=== PATIENT | male | born 1975 | race African-American/Black ===

== ENCOUNTER 2023-08-03 11:05 | Emergency (ER) | payer BC, SELFPAY ==
--- NOTE | ~2023-08-03 | XR_ITS ---
EXAMINATION: XR CHEST CLINICAL INFORMATION: Chest pain. Dyspnea. COMPARISON: None available. TECHNIQUE: 2 views of the chest were obtained. FINDINGS: Cardiac silhouette is normal in size. The lungs are well aerated. There is no lobar consolidation. No pleural effusion or pneumothorax. No gross osseous abnormality. Minimal degenerative changes of the spine. XR/XR chest 2V IMPRESSION: No acute pulmonary pathology.
--- NOTE | 2023-08-03 11:09 | ECG_ITS ---
Test Reason : CHEST IGHTNESS Blood Pressure : / mmHG Vent. Rate : 063 BPM Atrial Rate : 063 BPM P-R Int : 150 ms QRS Dur : 076 ms QT Int : 396 ms P-R-T Axes : 050 -11 -15 degrees QTc Int : 405 ms Normal sinus rhythm Nonspecific T wave abnormality Abnormal ECG No previous ECGs available Referred By: Generic ED Physician Electronically Signed By:STEVEN RODRÍGUEZ
[2023-08-03 11:19] VITALS: BP 132/82; PULSE 56; RESP 19; TEMP 36.8; O2SAT 99; BMI 30.6
--- NOTE | 2023-08-03 11:19 | ED.GENADULT ---
HPI - General Adult General Chief complaint: General Medical Stated complaint: Chest tightness, difficulty breathing Time Seen by Provider: 08/03/23 16:34 Source: patient and RN notes reviewed Mode of arrival: ambulatory Limitations: no limitations History of Present Illness HPI narrative: This is a 47-year-old male, with no known medical problems, presenting to the emergency department complaints of intermittent chest palpitations times 2-3 months. Patient states that ever since July 01 he has had intermittent episodes of ?thumping? in his chest. He states that he noticed this increased when he is at work as well as driving in his vehicle. He does report that he is under lot of stress. He states that since night, the symptoms have been constant, they last for typically several seconds up to 5 minutes. He does endorse some mild nausea as well as intermittent dizziness, noticing with standing. He denies chest pain rather palpitations and fluttering in his chest. He denies any headaches, abdominal pain, nausea, vomiting or diarrhea. No other complaints or concerns at this time. MD complaint: Chest palpitations Onset (ago): month(s) Relieving factors: none Exacerbating factors: none Treatments prior to arrival: none Related Data Allergies Allergy/AdvReac Type Severity Reaction Status Date / Time No Known Allergies Allergy Verified 08/03/23 11:22 Review of Systems Review of Systems: Yes all other systems are reviewed and are negative Constitutional: Constitutional: Reports as per [facility] Past Medical History Attestation statement: The following information was validated with the patient. Onset Date is defined in the Problem List Problems that require an onset date and time if occurred within 24 hrs of arrival to the ED Aortic Dissection and Rupture; Neurologic impairment; Cardiopulmonary Arrest; Endotracheal Intubation; Insertion or Replacement of Mechanical Circulatory Assist Device Social History Social History Smoked in Last 30 Days: No Use of substances other than those prescribed or required for medical reasons: Yes Substance Use Type: Marijuana Advance Directives: No Advance Directives Information Provided: No Physical Exam ED Vital Signs: Vital Signs - 24 hr 08/03/23 11:19 08/03/23 17:14 08/03/23 17:15 Temperature 98.3 F Pulse Rate 56 76 75 Respiratory Rate 19 18 16 Blood Pressure 132/82 127/77 135/75 Pulse Oximetry 99 100 Oxygen Delivery Method Room Air Room Air 08/03/23 17:17 Temperature Pulse Rate 73 Respiratory Rate 16 Blood Pressure 138/73 Pulse Oximetry Oxygen Delivery Method BMI result Body Mass Index 30.6 Const General: cooperative, comfortable and no acute distress Orientation/consciousness: patient oriented x3 Limitations: no limitations [facility] Head: Yes normal to inspection, Yes normocephalic and Yes atraumatic Ears: hearing grossly normal bilaterally General nose exam: Normal external nose present Face and sinus: Yes normal facial exam Mouth: Normal oral and palatal mucosa present, oropharynx normal and moist mucous membranes Throat: Yes posterior oropharynx normal Eyes General: appearance normal, both eyes and all related structures Eyelids: Yes eyelids normal Conjunctivae: conjunctivae normal Sclerae: sclerae normal Pupils: Equal, round and reactive pupils present EOM: EOMs intact bilaterally Neck Neck: Yes normal visual inspection, Yes full ROM and Yes no lymphadenopathy Lymphatic: no lymphadenopathy noted Chest Chest palpation & inspection: normal inspection of the chest Resp Effort & Inspection: normal respiratory effort and able to speak in complete sentences Auscultation: clear to auscultation bilaterally, no crackles, no rales, no rhonchi and no wheezes Cardio Rate: regular rate Rhythm: regular rhythm Heart sounds: S1 normal heart sound present and S2 normal heart sound present GI Inspection: Yes normal to inspection Skin General skin exam: no rashes or lesions noted Trauma: no lacerations or abrasions Wounds: no wounds Neuro General: patient oriented x3 and moves all extremities Cranial nerves: Yes Equal, round and reactive pupils present Extrem Other: No calf tenderness. General: Yes normal to inspection Right upper extremity: normal to inspection Left upper extremity: normal to inspection Right lower extremity: normal to inspection Left lower extremity: normal to inspection Course Course Course Narrative: This is a rapid medical exam: Additional HPI, ROS, PE not included below will be deferred to primary provider. Patient is a 47-year-old male presenting to the emergency department with complaint of chest tightness, shortness of breath, worse with standing and movement for the past 2-3 months. Symptoms more constant since night. Reports mild nausea, denies vomiting or diarrhea. Denies any past medical history. Rates pain at 4 or 5/10. Plan: EKG, CXR, labs Reevaluation(s) Reevaluation #1: Patient was seen by me at this time, vital signs have remained stable, chest x-ray unremarkable. No leukocytosis, stable H&H, 1st troponin 8, will repeat. Chemistry within normal limits. Orthostatic vital signs within normal limits Time: 17:18 Reevaluation #2: Second troponin flat, EKG reassuring chest x-ray unremarkable. BNP and TSH limits. Cardiac workup today is unremarkable. Given cardiology referral for further evaluation. Given return precautions. Patient understands agrees with plan. Patient stable for discharge. Time: 18:31 Medical Decision Making Medical Decision Making [facility] Narrative: This is a 47-year-old male, with no known medical problems, presenting to the emergency department complaints of palpitations times 2-3 months. Reports that since he has had increased frequency in these. Endorses slight nausea as well as dizziness upon standing. On arrival, all vital signs within normal limits, heart regular rate and rhythm. Patient has no history of blood clots, pain with inspiration, recent travel, surgeries, hospitalizations, or cancer history. He has no known family medical cardiac problems. Plan: Labs, EKG, chest x-ray, orthostatic vitals Differential Diagnosis Differential Diagnoses: The differential diagnosis associated with the presentation includes Palpitations, electrolyte abnormality, ACS, Admission/Observation Consideration of admission/observation: Escalation of care including admission/observation considered Escalation of care including admission observation was considered given atypical chest pain however workup reassuring. Lab Data [facility] Lab Attestation statement: I reviewed the patient's lab results. See course 08/03/23 11:31 08/03/23 11:31 Labs: Lab Results 08/03/23 08/03/23 08/03/23 Range/Units 11:31 17:51 17:52 WBC 7.4 (4.8-10.8) X10*3/uL RBC 5.18 (4.60-5.80) X10*6/uL Hgb 14.7 (14.0-18.0) g/dl Hct 42.9 (42.0-52.0) % MCV 82.8 (80.0-98.0) fL MCH 28.4 (27.0-33.0) pg MCHC 34.3 (31.0-36.0) g/dl RDW 13.1 (11.0-16.0) % Plt Count 253 (160-400) X10*3/uL MPV 9.7 (9.4-12.4) fL Immature Gran % (Auto) 0.3 (0.0-0.4) % Neut % (Auto) 66.2 (45-73) % Lymph % (Auto) 26.5 (20-40) % [place] % (Auto) 6.1 (2-11) % Eos % (Auto) 0.5 (0-4) % Baso % (Auto) 0.4 (0-2) % Lymph # (Auto) 2.0 (1.2-4.9) X10*3/uL [place] # (Auto) 0.5 (0.1-1.2) X10*3/uL Eos # (Auto) 0.0 (0.0-0.4) X10*3/uL Baso # (Auto) 0.0 (0.0-0.2) X10*3/uL Abs Immat Gran (auto) 0.02 (0.00-0.03) X10*3/uL Absolute Neuts (auto) 4.9 (2.0-8.3) x10*3/uL Absolute Nucleated RBC 0.000 (0.0-0.012) X10*3/uL Nucleated RBC % (auto) 0.0 (0.0-0.2) /100WBC PT 12.6 (11.1-13.3) SEC INR 1.0 (0.9-1.1) Sodium 141 (135-145) mmol/L Potassium 4.2 (3.3-5.1) mmol/L Chloride 105 (96-108) mmol/L Carbon Dioxide 27 (22-29) mmol/L Anion Gap 13 (12-20) BUN 8 L (9-16) mg/dL Creatinine 1.14 (0.5-1.4) mg/dL Estim Creat Clear Calc 86.9 Estimated GFR > 60 Random Glucose 105 (60-115) mg/dL Calcium 10.0 (8.4-10.2) mg/dL Total Bilirubin 0.5 (0.0-1.0) mg/dL AST 14 (5-37) U/L ALT 15 (0-40) U/L Alkaline Phosphatase 51 (39-117) U/L Troponin I High Sens 8.0 7.6 (<3.5-35.0) ng/L B-Natriuretic Peptide < 10 (<100) pg/mL Total Protein 7.6 (6.5-8.0) g/dL Albumin 4.8 (3.5-5.0) g/dL TSH 1.35 (0.32-4.0) uIU/mL Independent Interpretation I performed an independent interpretation of an: EKG Interpretation: EKG normal sinus rhythm at a ventricular rate of 63 beats per minute, no ST elevation or depression noted Radiology Impression Discussion of test interpretation with radiology: I have reviewed the radiologist's reading. Radiologist Impression: EXAMINATION: XR CHEST CLINICAL INFORMATION: Chest pain. Dyspnea. COMPARISON: None available. TECHNIQUE: 2 views of the chest were obtained. FINDINGS: Cardiac silhouette is normal in size. The lungs are well aerated. There is no lobar consolidation. No pleural effusion or pneumothorax. No gross osseous abnormality. Minimal degenerative changes of the spine. XR/XR chest 2V IMPRESSION: No acute pulmonary pathology. Dictated By: Marcos Garcia MD Discharge Plan Discharge Clinical Impression: Atypical chest pain, Palpitation Patient Disposition: Home, Self-Care Instructions: Chest Pain (ED), Heart Palpitations (ED) Additional Instructions: You were seen in the emergency department for palpitations. Your workup today was normal. Your EKG was normal, your chest x-ray was normal. Your thyroid level was within normal limits Your labs were reassuring. It is unclear what is causing you to have the symptoms therefore I urge you to follow-up with cardiology outpatient. Please call to make an appointment. If any new or worsening symptoms occur including but not limited to chest pain, shortness of breath, or any other new or worsening symptoms, please return for re-evaluation. Referrals: [facility] [Provider Group] Stand Alone Forms: Work/School Release
[2023-08-03 11:35] LABS: MANUAL DIFF FLAG NO
[2023-08-03 11:36] LABS: Basophils Percent Auto 0.4 % (0-2); Eosinophils Percent Auto 0.5 % (0-4); Hematocrit 42.9 % (42.0-52.0); Hemoglobin 14.7 g/dl (14.0-18.0); Imm Gran Abs Auto 0.02 X10*3/uL (0.00-0.03); Imm Gran Pct Auto 0.3 % (0.0-0.4); Lymphocytes Percent Auto 26.5 % (20-40); Mean Corpuscular HGB Conc 34.3 g/dl (31.0-36.0); Mean Corpuscular Hemoglobin 28.4 pg (27.0-33.0); Mean Corpuscular Volume 82.8 fL (80.0-98.0); Mean Platelet Volume 9.7 fL (9.4-12.4); Monocytes Absolute Auto 0.5 X10*3/uL (0.1-1.2); Monocytes Percent Auto 6.1 % (2-11); Neutrophils Absolute Auto 4.9 x10*3/uL (2.0-8.3); Neutrophils Percent Auto 66.2 % (45-73); Platelet Count 253 X10*3/uL (160-400); Red Blood Count 5.18 X10*6/uL (4.60-5.80); Red Cell Distribution Width 13.1 % (11.0-16.0); White Blood Count 7.4 X10*3/uL (4.8-10.8)
[2023-08-03 11:47] LABS: Prothrombin Time 12.6 SEC (11.1-13.3)
[2023-08-03 11:51] LABS: Alanine Aminotransferase 15 U/L (0-40); Albumin Level 4.8 g/dL (3.5-5.0); Alkaline Phosphatase 51 U/L (39-117); Anion Gap 13 (12-20); Aspartate Amino Transferase 14 U/L (5-37); Bilirubin Total 0.5 mg/dL (0.0-1.0); Blood Urea Nitrogen 8 mg/dL (9-16); Carbon Dioxide 27 mmol/L (22-29); Chloride 105 mmol/L (96-108); Creatinine Clr Calc Pharmacy 86.9; Estimated Glomerular Filt Rate > 60; Glucose Random 105 mg/dL (60-115); Potassium 4.2 mmol/L (3.3-5.1); Sodium 141 mmol/L (135-145); Total Protein 7.6 g/dL (6.5-8.0)
[2023-08-03 17:14] VITALS: BP 127/77; PULSE 76; RESP 18; O2SAT 100
[2023-08-03 17:15] VITALS: BP 135/75; PULSE 75; RESP 16
[2023-08-03 17:17] VITALS: BP 138/73; PULSE 73; RESP 16
[2023-08-03 18:27] LABS: B Type Natriuretic Peptide < 10 pg/mL (<100); Troponin-I High Sensitivity 7.6 ng/L (<3.5-35.0)
[2023-08-03 18:41] LABS: TSH reflex Free T4 1.35 uIU/mL (0.32-4.0)
== END 2023-08-03 19:22 | disposition home or self-care (01) ==
PROVIDERS: Physician Assistant Medical; Registered Nurse Emergency; Emergency Provider Emergency Medicine Emergency Medical Services; PCP Internal Medicine
DX: R07.89 Other chest pain (principal); R00.2 Palpitations; R06.02 Shortness of breath
CPT/HCPCS: 36415; 71046; 80053; 83880; 84443; 84484; 85025; 85610; 93005; 99283; 99284

== ENCOUNTER → 2023-08-03 11:09 | Outpatient (BNV) | payer SELFPAY | PROVIDERS: PCP Internal Medicine; Visit Provider Internal Medicine | DX: R94.31 Abnormal electrocardiogram [ECG] [EKG] (principal) | CPT/HCPCS: 93010 ==

== ENCOUNTER 2023-08-06 13:38 | Outpatient (AMB) | payer BC, SELFPAY ==
--- NOTE | 2023-08-06 14:06 | MHC.OFFVIS ---
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 He ruled out for ACS. Was referred to Cardiology in follow-up. Today he reports that he is under high levels of stress at home and at work. He believes this is contributing to his symptoms. He describes having an episode back in May where he was at home and had a drink of alcohol. He then felt brief palpitation in his chest, followed by a warm sensation, nausea and it felt like he was going to pass out. He has never had any full syncope in the past. He tells me an episode like this happened several years ago as well. On the day he went to the emergency room he says he was having similar symptoms causing him much concern. He describes having periodic tightness in his chest. His chest will feel better if he puts his bathroom on and ties it tightly around the ribcage area. He used to exercise routinely but has not in the last year as he has a daughter. His work environment is creating much stress and he is tearful at this visit. He says he is pursuing other job opportunities. He says he had a heart murmur as a child. No other history of heart disease. He has no heart disease in his family. He has never smoked cigarettes. He smokes marijuana occasionally. No alcohol use since May. 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 Never had full syncope Denies chest pain, Denies chest pain at rest, Denies chest pain with activity, Denies rapid heart rate, Denies pedal edema, Denies edema, Denies leg edema, Denies lightheadedness, Denies palpitations, Denies dyspnea, Denies dyspnea on exertion and Denies orthopnea Resp Denies cough, Denies dyspnea and Denies dyspnea on exertion GI Denies hematochezia and Denies change in stool character Musc Denies abnormal gait, Reports limited range of motion, Reports muscle cramps, Denies muscle weakness, Denies numbness, Denies radiating pain into limb, Denies stiffness and Denies tingling Neuro Denies abnormal gait, Denies dizziness, Denies numbness and Denies tingling Endo Denies palpitations Physical Exam Vital Signs: Last Vital Signs Pulse 80 08/06/23 14:07 BP 134/92 H 08/06/23 14:07 BMI result Body Mass Index 30.2 Const General: cooperative, healthy appearing, comfortable and no acute distress Orientation/consciousness: patient oriented x3 Neck Neck: Yes normal visual inspection and Yes no JVD Resp Effort & Inspection: normal respiratory effort Auscultation: clear to auscultation bilaterally, no crackles, no rales, no rhonchi and no wheezes Cardio Jugular venous distension: no JVD Rate: regular rate Rhythm: regular rhythm Heart sounds: S1 normal heart sound present, S2 normal heart sound present, no murmurs and no rubs Neuro General: patient oriented x3 Extrem General: Yes normal to inspection, No no pedal edema and No calf tenderness Psych Appearance: grossly normal Mental Status: mental status grossly normal Speech and movement: Normal speech and movement present Assessment & Plan Assessment & Plan (1) Atypical chest pain: Code(s): R07.89 - Other chest pain Plan: Fourth of tightness in his chest which occurs randomly, not exertional. He describes that it feels better with his bathroom tied tightly around him. Overall this is atypical for angina. Cardiac risk factors of smoking marijuana. He reports high stress levels and is very concerned about his heart. ER evaluation for symptom showed normal troponins, EKG with no acute ST or T-wave abnormalities. For further evaluation and patient reassurance will order an exercise stress test to assess for any ischemia. Will order echocardiogram to assess for any structural heart disease. Cardiology follow-up in 4-6 weeks, sooner if needed. Signs and symptoms of true angina reviewed with him. (2) Palpitation: Code(s): R00.2 - Palpitations Plan: Report of heart palpitations that occur at times. Can feel thumping in his chest. Also describes episodes of presyncope which sound like they could be vasovagal events. Will check a Holter monitor to assess for any arrhythmia. Instructed to sit/lay down if he feels symptoms reoccur. Stay well hydrated. Try to recognize triggers. (3) Pre-syncope: Code(s): R55 - Syncope and collapse Plan: As above (4) Other social stressor: Code(s): Z65.9 - Problem related to unspecified psychosocial circumstances Plan: As above Plan Time spent on chart review, documentation, interview and assessment Orders: Orders ECG 3 day holter monitor Today R00.2 - Palpitations, R55 - Syncope and collapse CA echo transthoracic complete Today R00.2 - Palpitations, R07.89 - Other chest pain CA stress test Today R00.2 - Palpitations, R07.89 - Other chest pain, R55 - Syncope and collapse Coding Level of Care Code New Pt Level 4 (56115) Diagnoses Atypical chest pain R07.89 Palpitation R00.2 Pre-syncope R55 Other social stressor Z65.9 Time Spent (min) 35
[2023-08-06 14:07] VITALS: BP 134/92; PULSE 80; BMI 30.2
== END 2023-08-06 14:52 | disposition home or self-care (01) ==
PROVIDERS: PCP Internal Medicine; Visit Provider Nurse Practitioner Family
DX: R07.89 Other chest pain (principal); R00.2 Palpitations; R55 Syncope and collapse; Z65.9 Problem related to unspecified psychosocial circumstances
CPT/HCPCS: 99204

== ENCOUNTER → 2023-08-06 13:38 | Outpatient (BNVA) | payer BC, SELFPAY | PROVIDERS: PCP Internal Medicine; Visit Provider Nurse Practitioner Family ==

== ENCOUNTER → 2023-08-27 08:41 | Outpatient (REF) | payer BC, SELFPAY ==
--- NOTE | 2023-08-27 08:47 | HM_ITS ---
Conclusion: 1. Patient was monitored for total period of 3 days 2. Baseline was normal sinus rhythm with average heart of 68 beats per minute 3. No significant arrhythmias or pauses noted 4. Patient reported 10 episodes of chest pain that mostly correlated with sinus rhythm or sinus tachycardia, 1 episode correlated with isolated PVC MTDD
--- NOTE | 2023-08-27 08:47 | CA_ITS ---
Acquisition Time: 2023-08-27 09:00:49 Total Exercise Time: 00:10:18 Test Indications: CP Medications: SEE H Protocol: KANDICE Max HR: 151 BPM 86% of Pred: 175 BPM Max BP: 166/064 mmHG Max Work Load: 12.2 METS Exercise stress test exercise 10 min 18 sec of Kandice protocol achieving 86% MPHR, with baseline 1-2/10 chest tightness with no change, with mild SOB, with dizziness reported in recovery, with isolated PVCs, with inverted T wave leads 2, 3, aVF, V5-V6. Dizziness resolved with rest.Test reviewed with Dr. Barrios Referred By: Chiquis Kramer Overread By: Allison Avery
--- NOTE | 2023-08-27 10:00 | CA_ITS ---
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 The calculated ejection fraction is 56% by biplane method. - No obvious valvular pathology seen on this study. Findings Left Ventricle Normal left ventricular cavity size. There is mildly increased left ventricular wall thickness. The left ventricular systolic function is normal. The calculated ejection fraction is 56% by biplane method. There is no evidence of regional wall motion abnormalities. Diastolic function is normal for age. Right Ventricle Mildly increased right ventricular cavity size. There is normal right ventricular systolic function. Atria Both atria are normal in size. Aortic Valve There is a normal trileaflet aortic valve. There is no aortic valve stenosis. There is no aortic valve regurgitation. Mitral Valve The mitral valve appears normal. There is trace mitral valve regurgitation. There is no mitral valve stenosis. Pulmonic Valve The pulmonic valve is likely normal. Tricuspid Valve Normal tricuspid valve structure. There is trace tricuspid valve regurgitation. There is no evidence of pulmonary hypertension. Great Vessels The asc aorta is normal in size. Venous The inferior vena cava is normal in size and collapses greater than 50% with inspiration. Pericardium/Pleural There is no evidence of pericardial effusion. Prior Study Comparison No prior study available for comparison. Recommendations, Care & Conclusions No obvious valvular pathology seen on this study. Measurements 2D Linear Measurements IVSd: 1.20 0.6-0.9/0.6-1.0 cm LVIDd: 5.03 3.9-5.3/4.2-5.9 cm LVIDd Index: 2.52 2.4-3.2/2.2-3.1 cm/m2 LVIDs: 2.93 2.0-3.6 cm LVPWd: 1.22 0.7-1.1 cm Ao Root: 3.00 2.1-3.5 cm LA Diam: 4.00 2.7-3.8/3.0-4.0 cm LAIDs Index: 2.00 1.5-2.3 cm/m2 LV Mass: 297.68 67-162/88-224 g LV Mass Index: 148.84 43-95/49-115 g/m2 LVOT Diam: 2.30 3.0+(-)1.3 cm 2D Systolic Function EF 4C: 59.40 >55% EF 2C: 55.70 >55% EF BiP: 56.40 >55% Mitral Valve MV Pk E: 0.81 MV PK A: 0.52 MV Decel Time: 169.00 E/A: 1.50 E'Lateral: 12.60 E'Medial: 7.07 E/E' Med: 11.40 E/E' Lat: 6.40 PHT: 49.00 MVA PHT: 4.49 Decel Garrard: 4.77 Aortic Valve AoV Pk Fish: 1.23 AoV Mn Fish: 0.79 AoV VTI: 0.29 AoV Pk Grad: 6.00 Aov Mn Grad: 3.00 EMERSON Cont.VTI: 2.48 LVOT LVOT Pk Fish: 0.76 LVOT Mn Fish: 0.50 LVOT VTI: 0.18 LVOT Pk Grad: 2.00 LVOT Mn Grad: 1.00 LVOT Diam: 2.30 LVOT Area: 4.15 Diastolic Function MV Pk E: 0.81 MV Pk A: 0.52 E/A: 1.50 E'Medial: 7.07 E/E' Med: 11.40 E' Laterial: 12.60 E/E' Lat: 6.40 Right Ventricle TAPSE (mm): 32.00 TVS' Fish: 12.00 Tricuspid Valve TR Pk Fish: 2.01 TR Pk Grad: 16.00 RA Press: 3.00 RVSP: 19.00 Great Vessels Aorta Ao Root-2D: 3.00 2.0-3.7 cm Ao Asc: 2.90 2.1-3.4 cm Pulmonary Valve PV Pk Fish: 1.06 Peak PV Grad: 4.00 Updated in Other Vendor System with Status of Final Matt Barrios MD electronically signed on 08/28/2023 11:39:47 AM with status of Final
== END ==
LOC: HO.CARD 08:41
PROVIDERS: PCP Internal Medicine; Visit Provider Nurse Practitioner Family
DX: R07.89 Other chest pain (principal); R00.2 Palpitations; R55 Syncope and collapse
CPT/HCPCS: 93017; 93242; 93306

== ENCOUNTER → 2023-08-27 08:47 | Outpatient (BNV) | payer BC, SELFPAY | PROVIDERS: PCP Internal Medicine; Visit Provider Nurse Practitioner | DX: R07.89 Other chest pain (principal) | CPT/HCPCS: 93016; 93018; 93244; 93306 ==

== ENCOUNTER 2023-09-17 12:52 | Outpatient (AMB) | payer BC, SELFPAY ==
[2023-09-17 12:55] VITALS: BP 120/82; PULSE 62; BMI 31.7
--- NOTE | 2023-09-17 12:55 | MHC.OFFVIS ---
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 He underwent an echocardiogram, stress test and Holter monitor and now presents for follow-up. Today he states that he has been feeling better since his last visit. He continues to have stress at work however things have been better recently. He is looking to get a different position in the same facility. His chest symptoms have gradually improved. He has no exertional chest discomfort. No shortness of breath, concerning palpitations, lightheadedness, presyncope, syncope, PND, orthopnea or edema. He does no routine exercise. He does not take any medications at home [facility] Social History Substance Use Type: Marijuana Review of Systems Const Details: high stress levels - better than last visit All systems reviewed & are unremarkable except as noted in HPI and below ENT Denies dizziness Card Reports chest pain, Denies chest pain at rest, Denies chest pain with activity, Denies rapid heart rate, Denies pedal edema, Denies edema, Denies leg edema, Denies lightheadedness, Denies palpitations, Denies dyspnea, Denies dyspnea on exertion and Denies orthopnea Resp Denies cough, Denies dyspnea and Denies dyspnea on exertion GI Denies hematochezia and Denies change in stool character Musc Denies abnormal gait, Denies limited range of motion, Denies muscle cramps, Denies muscle weakness, Denies numbness, Denies radiating pain into limb, Denies stiffness and Denies tingling Neuro Denies abnormal gait, Denies dizziness, Denies numbness and Denies tingling Endo Denies palpitations Physical Exam Vital Signs: Last Vital Signs Pulse 62 09/17/23 12:55 BP 120/82 09/17/23 12:55 BMI result Body Mass Index 31.7 Const General: cooperative, healthy appearing, comfortable and no acute distress Orientation/consciousness: patient oriented x3 Neck Neck: Yes normal visual inspection and Yes no JVD Resp Effort & Inspection: normal respiratory effort Auscultation: clear to auscultation bilaterally, no crackles, no rales, no rhonchi and no wheezes Cardio Jugular venous distension: no JVD Rate: regular rate Rhythm: regular rhythm Heart sounds: S1 normal heart sound present, S2 normal heart sound present, no murmurs and no rubs Neuro General: patient oriented x3 Extrem General: Yes normal to inspection, No no pedal edema and No calf tenderness Psych Appearance: grossly normal Mental Status: mental status grossly normal Speech and movement: Normal speech and movement present Assessment & Plan Assessment & Plan (1) Atypical chest pain: Code(s): R07.89 - Other chest pain Plan: Report of atypical sounding chest discomfort on last visit. Cardiac risk factors of smoking marijuana. Prior ER evaluation for symptom showed normal troponins, EKG with no acute ST or T-wave abnormalities. He underwent an exercise stress test on 08/27/2023 with exercise for 10 minutes with no anginal symptoms and no EKG changes of ischemia with exercise. Echocardiogram done 08/27/2023 showed EF 56%, no valve or regional wall motion abnormalities. Holter monitor done 08/27/2023 for 3 days showed sinus rhythm with average heart rate 68, no significant arrhythmias. Test results reviewed with him in detail. Offered reassurance that his prior symptoms are likely noncardiac in nature. Discussed stress reduction activities. Cardiology follow-up as needed. (2) Palpitation: Code(s): R00.2 - Palpitations Plan: Report of heart palpitations that occur at times. Can feel thumping in his chest. Also describes episodes of presyncope which sound like they could be vasovagal events. Holter monitor as above. His symptoms reported during Holter monitor correlated with sinus rhythm, sinus tach and once with PVC. Results reviewed with him. Offered reassurance. (3) Other social stressor: Code(s): Z65.9 - Problem related to unspecified psychosocial circumstances Plan: High work stress. He is working on changing his position within the same work facility. Plan Time spent on chart review, documentation, interview and assessment Coding Level of Care Code Est Pt Level 3 (02647) Diagnoses Atypical chest pain R07.89 Palpitation R00.2 Other social stressor Z65.9 Time Spent (min) 22
== END 2023-09-17 13:12 | disposition home or self-care (01) ==
PROVIDERS: PCP Internal Medicine; Visit Provider Nurse Practitioner Family
DX: R07.89 Other chest pain (principal); R00.2 Palpitations; Z65.9 Problem related to unspecified psychosocial circumstances
CPT/HCPCS: 99213

== ENCOUNTER → 2023-09-17 12:52 | Outpatient (BNVA) | payer BC, SELFPAY | PROVIDERS: PCP Internal Medicine; Visit Provider Nurse Practitioner Family ==